=== PATIENT | female | born 1985 | race Two or more races ===

== ENCOUNTER 2017-06-15 01:43 | Emergency (ER) | payer MEDICAID ==
[2017-06-15] VITALS (9 sets, daily range): BP systolic 122–156; BP diastolic 67–99
[~2017-06-15] VITALS: Ht 170.2 cm; Wt 68.0 kg
[2017-06-15] MEDS ORDERED: Morphine Sulfate 4mg/ml Inj IVP ONE (02:30)
[2017-06-15] MEDS ORDERED: Propofol 10mg/ml 20ml IV ONE ×2 (03:20→04:00)
--- NOTE | 2017-06-15 03:22 | Emergency Room Report ---
History of Present Illness General Chief Complaint: Upper Extremity Injury Source: Patient Present Illness HPI Patient presents with complaints of right shoulder pain Reports that just prior to arrival she had a fall onto her right side Patient was essentially getting up from her bed when she had a fall forward towards the right side and fell on the extended right arm Pain is 10 out of 10 Denies any head injury or loss of consciousness patient has increased pain with any movement of the arm Denies any elbow pain Denies any back pain Allergies: Coded Allergies: No Known Allergies (Unverified , 06/15/17) Patient History Past Medical History: see triage record Pertinent Family History: none Last Menstrual Period: May Reviewed Nursing Documentation: PMH: Agreed, PSxH: Agreed Nursing Documentation-PMH Past Medical History: No Stated History Review of Systems All Other Systems: negative except mentioned in HPI Physical Exam Vital Signs Date Time Temp Pulse Resp B/P (MAP) Pulse Ox O2 Delivery O2 Flow Rate FiO2 06/15/17 02:13 97.9 82 18 147/104 98 Room Air Sp02 EP Interpretation: reviewed, normal General Appearance: moderate distress - in acute pain Head: normocephalic, atraumatic Eyes: bilateral eye PERRL, bilateral eye EOMI ENT: hearing grossly normal, normal pharynx Neck: full range of motion, supple Respiratory: lungs clear, normal breath sounds Cardiovascular #1: normal peripheral pulses, regular rate, rhythm Gastrointestinal: non tender, soft Musculoskeletal: other - Deformity at the right shoulder discomfort with any movement, otherwise neurovascularly intact distally. Sensory is also intact Neurologic: alert, oriented x3 Skin: normal color, no rash Lymphatic: no adenopathy Procedures Splinting Splinting : Consent: Written Pre-Made Type: velcro Splint: shoulder immobilizer Pre-Proc Neuro Vasc Exam: normal Post-Proc Neuro Vasc Exam: normal Patient Tolerated: Well Complications: None Joint Reduction Joint Reduction : Consent: Written Joint Reduction Site: shoulder (R) Procedural Sedation: Yes Reduction Attempts: One Pre-Procedure NV Exam: Yes Post-Procedure NV Exam: Yes Post Joint Reduction Film: joint reduced Patient Tolerated: Well Complications: None Progress Patient had simple traction applied to the right arm which did reduce the shoulder well Procedural Sedation Consent: Written Time out called at: 03:40 Pre-Sedation Assessment: Plan for Sedation Discuss Airway Assessment (Malampati): I Heart: normal Lungs: normal Abdomen: normal Extremities: normal Procedures/Plans: Closed Reduction Plan for Moderate Sedation: Propofol ASA Score: I Procedure Narrative Total [id number] time of 7 minutes Start Time: 03:40 End Time: 03:47 Communication: No Apparent Limitation Mental Status: Awake Respiration: Unlabored Skin Condition: WNL Abdomen: WNL Nausea: NO Vomiting: NO Medical Decision Making Diagnostic Impression: Primary Impression: Shoulder dislocation ER Course Patient had procedural sedation along with splinting and reduction as noted above The shoulder reduced well Patient tolerated the procedure well Initially there was question of possible fracture involved as well however on the reduced imaging it does not appear to be the case nevertheless the patient will require close outpatient followup, Other X-Ray Diagnostic Results Other X-Ray Diagnostic Results #1: X-Ray ordered: rright shoulder # of Views/Limited Vs Complete: 3 View Indication: Pain EP Interpretation: Yes Interpretation: no soft tissue swelling, other - Anterior dislocation right shoulder, questionable glenoid fracture Impression: Other - shoulder dislocation right Electronically Signed by: Hany Chavez DO Other X-Ray Diagnostic Results #2: X-Ray ordered: right shoulder # of Views/Limited Vs Complete: 2 View Indication: Pain - production EP Interpretation: Yes Interpretation: no dislocation, no soft tissue swelling, no fractures Impression: No acute disease Electronically Signed by: Hany Chavez DO Last Vital Signs Date Time Temp Pulse Resp B/P (MAP) Pulse Ox O2 Delivery O2 Flow Rate FiO2 06/15/17 03:03 97.9 72 18 144/90 100 Room Air Status: improved Disposition: HOME, SELF-CARE Condition: Improved Scripts Acetaminophen With Codeine (T#3) (TYLENOL #3 TAB*) Y Tab 1 TAB ORAL Q8H Y for For Pain, #10 TAB Prov: HANY CHAVEZ.ODeniz 06/15/17 Ibuprofen* (MOTRIN*) 600 Mg Tablet 600 MG ORAL Q8H Y for For Pain, #30 TAB 0 Refills Prov: HANY CHAVEZ D.O. 06/15/17 Referrals: NOT CHOSEN [facility]/,REFERRING (PCP) Additional Instructions: Patient is provided with the discharge instructions notified to follow up with primary doctor in the next 2-3 days otherwise return to the er with any worsening symptoms. Please note that this report is being documented using Blockchain technology. This can lead to erroneous entry secondary to incorrect interpretation by the dictating instrument. HANY CHAVEZ D.O. Jun 15, 2017 03:22
[2017-06-15] MEDS ORDERED: IBUPROFEN600 MG ORAL (04:11)
[2017-06-15] MEDS ORDERED: ACETAMINOPHEN-1 EAC1 ORAL (04:11)
--- NOTE | 2017-06-15 11:03 | Diagnostic Imaging Report ---
Indication: TRAUMA, pain, status post reduction Technique: 2 views of the right shoulder Comparison: One hour earlier Findings: Interim reduction of previously demonstrated anterior right shoulder dislocation. Satisfactory anatomic alignment. No definite underlying fracture deformity Impression:Is satisfactory reduction of previous demonstrated right shoulder dislocation. This agrees with the preliminary interpretation provided by the emergency room physician
--- NOTE | 2017-06-15 11:06 | Diagnostic Imaging Report ---
Indication: TRAUMA Technique: 3 views of the right shoulder Comparison: none Findings: There is anterior dislocation right humeral head. No definite underlying fracture deformity. Impression:Positive for right shoulder dislocation This agrees with the preliminary interpretation provided by the emergency room physician
== END 2017-06-15 05:05 | disposition home or self-care (01) ==
LOC: EMR 02:07
DX: M25.511 Pain in right shoulder (principal); S43.004A Unspecified dislocation of right shoulder joint, initial encounter; W06.XXXA Fall from bed, initial encounter; Y93.9 Activity, unspecified; Y99.9 Unspecified external cause status
CPT/HCPCS: 23650; 73030; 96374; 96375; 99284; J2270; J2405; J2704; Z7502

== ENCOUNTER 2018-12-03 20:17 | Emergency (ER) | payer MEDICAID ==
[2018-12-03] VITALS (8 sets, daily range): BP systolic 133–158; BP diastolic 81–111
[~2018-12-03] VITALS: Ht 170.2 cm; Wt 63.5 kg
[~2018-12-03 20:17] MED LIST: ACETAMINOPHEN-1 EAC1 ORAL; IBUPROFEN600 MG ORAL
[2018-12-03] MEDS ORDERED: NKM (20:30)
--- NOTE | 2018-12-03 20:35 | NUR ---
ED Nurse Note: Ambulated to ED c/o right shoulder dislocation; dimpling noted; unable to move right upper extremity. AO4. VSS. Family at bedside.
--- NOTE | 2018-12-03 20:40 | NUR ---
ED Nurse Note: IV access established.
[2018-12-03] MEDS ORDERED: fentaNYL 100 mcg/2 mL IV ONE (20:45)
--- NOTE | 2018-12-03 20:47 | Emergency Room Report ---
History of Present Illness General Chief Complaint: Shoulder Injury Source: Patient Present Illness HPI Patient presents with right shoulder pain. She states she's had this problem in the past but usually it doesn't get stuck out like this. Initial injury was fall in 2017. She had to have the shoulder reduced. She denies fall this time. She was lifting something off of a tailgate and twisted the arm outwards and slightly upwards. There is no numbne The patient has irregular periods. She doesn't believe she is at this time. The patient last ate at 1 PM. Patient is right-handed. No fevers, chills, chest pain, palpitations, nausea, vomiting, diarrhea, dysuria , abdominal pain, shortness of breath, depression, visual changes, headache. Allergies: Coded Allergies: No Known Allergies (Unverified , 06/15/17) Patient History Past Medical History: see triage record Social History: Denies: smoking, alcohol use, drug use Social History Narrative Was with boyfriend and son. She is a seamstress Last Menstrual Period: oct Now: No Reviewed Nursing Documentation: PMH: Agreed; PSxH: Agreed Nursing Documentation-PMH Past Medical History: No Stated History Review of Systems All Other Systems: negative except mentioned in HPI Physical Exam Vital Signs Date Time Temp Pulse Resp B/P (MAP) Pulse Ox O2 Delivery O2 Flow Rate FiO2 12/03/18 20:27 98.1 82 16 158/92 96 Room Air Sp02 EP Interpretation: reviewed, normal General Appearance: well appearing, GCS 15, mild distress - With shoulder pain Head: normocephalic, atraumatic Eyes: bilateral eye normal inspection, bilateral eye PERRL ENT: hearing grossly normal, normal voice, moist mucus membranes - Mallampati 2 Neck: full range of motion, supple Respiratory: lungs clear, normal breath sounds, no respiratory distress, speaking full sentences Cardiovascular #1: regular rate, rhythm Cardiovascular #2: 2+ radial (R) - Capillary refill normal Gastrointestinal: normal inspection Musculoskeletal: other - Before meals joint dimpling and shoulder tenderness with decreased range of motion Neurologic: alert, oriented x3, other - distal neurovasc normal Psychiatric: mood/affect normal - In pain Skin: no rash Procedures Joint Reduction Joint Reduction : Consent: Written Joint Reduction Site: shoulder (R) Procedural Sedation: Yes Reduction Attempts: One Pre-Procedure NV Exam: Yes Post-Procedure NV Exam: Yes Post Joint Reduction Film: joint reduced Patient Tolerated: Well Complications: None Progress Shoulder reduced with these with anterior flexion and abduction Procedural Sedation Consent: Written Pre-Sedation Assessment: Pre-proc Edu. done, Plan for Sedation Discuss Airway Assessment (Malampati): II Heart: normal Lungs: normal Abdomen: normal Extremities: normal Procedures/Plans: Closed Reduction Plan for Moderate Sedation: Other - etomidate ASA Score: I Start Time: 21:45 End Time: 12:49 Communication: No Apparent Limitation Mental Status: Awake Respiration: Unlabored Skin Condition: WNL Abdomen: WNL Nausea: NO Vomiting: NO Medical Decision Making Diagnostic Impression: Primary Impression: Dislocation of right shoulder joint Qualified Codes: S43.004A - Unspecified dislocation of right shoulder joint, initial encounter ER Course Patient presents with right shoulder pain after lifting something and twisting her arm outwards. Differential includes fracture, strain, dislocation amongst others. Based on exam dislocation is highly suspected. The patient is given a dose of IV Zofran and fentanyl. Procedural sedation his plan. X-ray with anterior dislocation. Shoulder reduced with ease with etomidate. Patient awake after 3 minutes of sedation. Sling is placed by biomed tech. Neurovascular check by me and normal. Postreduction film normal. Patient fully alert and ambulatory. Pain is improved. Patient stable for outpatient observation and treatment. Laboratory Tests Test 12/03/18 21:15 Urine Color Pale yellow Urine Appearance Clear Urine pH 6 (4.5-8.0) Urine Specific [place] 1.010 (1.005-1.035) Urine Protein Negative (NEGATIVE) Urine Glucose (UA) Negative (NEGATIVE) Urine Ketones Negative (NEGATIVE) Urine Blood 4+ (NEGATIVE) H Urine Nitrite Negative (NEGATIVE) Urine Bilirubin Negative (NEGATIVE) Urine Urobilinogen Normal MG/DL (0.0-1.0) Urine Leukocyte Esterase Negative (NEGATIVE) Urine RBC 2-4 /HPF (0 - 2) H Urine WBC 0-2 /HPF (0 - 2) Urine Squamous Epithelial Cells Occasional /LPF Urine Bacteria Occasional /HPF (NONE) Urine HCG, Qualitative Negative (NEGATIVE) Rhythm Strip Diag. Results EP Interpretation: yes Rhythm: NSR, no PVC's, no ectopy Other X-Ray Diagnostic Results Other X-Ray Diagnostic Results #1: # of Views/Limited Vs Complete: 3 View Indication: Pain Interpretation: no soft tissue swelling, no fractures, other - ant dislocation Impression: Other Electronically Signed by: Electronically signed by Dong Zheng MD Other X-Ray Diagnostic Results #2: # of Views/Limited Vs Complete: 1 View Indication: Other EP Interpretation: Yes Interpretation: no dislocation, no soft tissue swelling Electronically Signed by: Electronically signed by Dong Zheng MD Last Vital Signs Date Time Temp Pulse Resp B/P (MAP) Pulse Ox O2 Delivery O2 Flow Rate FiO2 12/03/18 22:50 98.0 72 18 133/82 100 Room Air Status: improved Disposition: HOME, SELF-CARE Condition: Improved Scripts Ibuprofen* (MOTRIN*) 600 Mg Tablet 600 MG ORAL Q6H PRN for For Pain, #16 TAB Prov: Dong Zheng MD 12/03/18 Dong Zheng MD Dec 03, 2018 20:47
--- NOTE | 2018-12-03 21:15 | NUR ---
ED Nurse Note: Urine collected; sent down to lab.
[2018-12-03 21:24] LABS: APPEARANCE,URINE CLEAR; BILIRUBIN, URINE NEGATIVE (NEGATIVE); COLOR,URINE PALE YELLOW; GLUCOSE, URINE (UA) NEGATIVE (NEGATIVE); KETONES,URINE NEGATIVE (NEGATIVE); LEUKOCYTE ESTERASE ,URINE NEGATIVE (NEGATIVE); NITRITE,URINE NEGATIVE (NEGATIVE); PH,URINE 6 (4.5-8.0); PROTEIN,URINE NEGATIVE (NEGATIVE); UROBILINOGEN,URINE NORMAL MG/DL (0.0-1.0)
[2018-12-03] MEDS ORDERED: Etomidate 40mg/20ml Inj IV ONE (21:45)
--- NOTE | 2018-12-03 21:45 | NUR ---
ED Nurse Note: moderate sedation initiation per CHIP Zheng for right shoulder reduction. consent signed and reviewed per ERMDestiney. see moderate sedation intervention.
--- NOTE | 2018-12-03 21:50 | NUR ---
ED Nurse Note: Patient cleared cleared for discharge per ERMD. AO4. NAD. VSS. Accompanied by family member. Patient given prescriptions and discharge instructions; verbalized understanding. IV and ID removed. Patient ambulated steady out of ED with all belongings.
[2018-12-03] MEDS ORDERED: IBUPROFEN600 MG ORAL (22:23)
--- NOTE | 2018-12-04 12:01 | Diagnostic Imaging Report ---
Indication: Status post closed reduction Findings: 2 views of the right shoulder were obtained. No obvious fracture or malalignment identified. Anatomic alignment achieved following closed reduction. IMPRESSION: Satisfactory reduction.
--- NOTE | 2018-12-04 12:01 | Diagnostic Imaging Report ---
Indication: Right shoulder pain Findings: 3 views of the right shoulder were obtained. Anterior dislocation of the glenohumeral joint demonstrated on multiple views. No definite fracture appreciated. IMPRESSION: Anterior dislocation of the shoulder
== END 2018-12-03 22:50 | disposition home or self-care (01) ==
LOC: EMR 21:01
DX: S43.014A Anterior dislocation of right humerus, initial encounter (principal); X50.9XXA Other and unspecified overexertion or strenuous movements or postures, initial encounter; Y92.89 Other specified places as the place of occurrence of the external cause
CPT/HCPCS: 23655; 73020; 73030; 81001; 81025; 96374; 96375; 99283; J2405; J3010; Z7502